=== PATIENT | female | born 1960 | race Caucasian/White ===

== ENCOUNTER → 2017-06-28 | Outpatient (CLI) | payer OTHER ==
[~2017-06-28] MED LIST: ALBU18HF INH; ASPI-515 PO; ATOR40TA78 PO; CLON0.5T20 PO; HYDR-3237 PO; IBUP200T49 PO; LURA80TA PO; METH500T97 PO; SERT100T5 PO; TRAM50TA2 PO
== END | disposition home or self-care (01) ==
LOC: CFH 14:33
PROVIDERS: ATTEND Nurse Practitioner
DX: M48.02 Spinal stenosis, cervical region (principal); M50.33 Other cervical disc degeneration, cervicothoracic region; M48.061 Spinal stenosis, lumbar region without neurogenic claudication; M51.36 Other intervertebral disc degeneration, lumbar region
CPT/HCPCS: 72141; 72148

== ENCOUNTER 2017-09-03 12:00 | Inpatient (IN) | payer OTHER ==
[~2017-09-03] VITALS: Ht 160 cm; Wt 97.6 kg
[~2017-09-03 12:00] MED LIST changes: +ASPI-496 PO; +BACITRACIN 50,000 UNIT ONE; +BUPIVACAINE/PF 0.5% ONE; +THROMBIN 5,000 UNIT VIAL TP ONE
[2017-09-03] MEDS ORDERED: LACTATED RINGERS 1,000 ML IV SCH (13:31)
[2017-09-03 13:35] VITALS: BP 123/84
[2017-09-03] MEDS ORDERED: MIDAZOLAM 1 MG/ML, 2ML ONE (14:59)
[2017-09-03] MEDS ORDERED: FENTANYL PF 250 MCG/5ML ONE ×2 (14:59→17:05)
[2017-09-03] MEDS ORDERED: ROCURONIUM 10MG/ML,5ML ONE (15:00)
[2017-09-03] MEDS ORDERED: PROPOFOL 10 MG/ML, 20ML ONE (15:00)
[2017-09-03] MEDS ORDERED: SUCCINYLCHOLINE 20 MG/ML, 10ML ONE (15:01)
[2017-09-03] MEDS ORDERED: CEFAZOLIN 1,000 MG ONE ×2 (15:02)
[2017-09-03] MEDS ORDERED: WATER-INJECTION,STERILE 10 ML IV ONE (15:02)
[2017-09-03] MEDS ORDERED: PROPOFOL 0 ML ONE (15:03)
[2017-09-03] MEDS ORDERED: ACETAMINOPHEN 325 MG TABLET PO PRN (16:30)
[2017-09-03] MEDS ORDERED: hydrALAzine 20 MG/ML, 1ML IV PRN (16:30)
[2017-09-03] MEDS ORDERED: SUGAMMADEX 200 MG/2 ML IVPush ONE (16:30)
[2017-09-03] MEDS ORDERED: PROMETHAZINE 25 MG/ML, 1ML IV PRN (16:30)
[2017-09-03] MEDS ORDERED: OXYcodone 5 MG/5 ML ORAL.SOL UDC PO PRN (16:30)
[2017-09-03] MEDS ORDERED: morphine SULFATE 10 MG/ML, 1ML IV PRN (16:30)
[2017-09-03] MEDS ORDERED: ONDANSETRON 2MG/ML, 2ML IVPush PRN (16:30)
[2017-09-03] MEDS ORDERED: FENTANYL PF 100 MCG/2ML IV PRN (16:30)
[2017-09-03] MEDS ORDERED: MEPERIDINE/PF 25MG/0.5ML IVPush PRN (16:30)
[2017-09-03] MEDS ORDERED: LABETALOL 5MG/ML, 20ML IV PRN (16:30)
[2017-09-03] MEDS ORDERED: HYDROmorphone 1 MG/ML, 1ML IV PRN (16:30)
[2017-09-03] MEDS ORDERED: PROMETHAZINE 12.5 MG SUPP PR PRN (16:30)
[2017-09-03] MEDS ORDERED: PROPOFOL 50 ML ONE ×3 (16:54→18:15)
[2017-09-03] MEDS ORDERED: BUPIVACAINE/PF-EPI 0.5% 1:200K IM ONE (17:09)
[2017-09-03] MEDS ORDERED: BACITRACIN 50,000 UNIT IRRIG ONE (17:09)
[2017-09-03] MEDS ORDERED: THROMBIN 5,000 UNIT VIAL TP ONE (17:10)
[2017-09-03] MEDS ORDERED: NEOSTIGMINE 1 MG/ML, 10ML ONE (17:31)
[2017-09-03] MEDS ORDERED: GLYCOPYRROLATE 0.4 MG/2 ML, 2ML ONE (17:31)
[2017-09-03] MEDS ORDERED: OXYcodone 5 MG/5 ML ORAL.SOL UDC ONE (19:23)
[2017-09-03] MEDS ORDERED: ATORVASTATIN 40 MG TABLET PO SCH (21:10)
[2017-09-03] MEDS ORDERED: LATUDA 120 MG HOMEMEDPO SCH (21:12)
[2017-09-03] MEDS ORDERED: DIPHENHYDRAMINE 50 MG/ML, 1ML IVPush PRN (21:30)
[2017-09-03] MEDS ORDERED: OXYcodone/APAP 5/325MG TABLET PO PRN (21:30)
[2017-09-03] MEDS ORDERED: MORPHINE SULFATE 4 MG/ML, 1ML IV PRN (21:30)
[2017-09-03] MEDS ORDERED: MAGNESIUM HYDROXIDE 8%, 30ML UDC PO PRN (21:30)
[2017-09-03] MEDS ORDERED: DIPHENHYDRAMINE 25 MG CAPSULE PO PRN (21:30)
[2017-09-03] MEDS ORDERED: ONDANSETRON 2MG/ML, 2ML IV PRN (21:30)
[2017-09-03] MEDS ORDERED: ONDANSETRON ODT 4 MG PO PRN (21:30)
[2017-09-03] MEDS ORDERED: HYDROcodone/APAP 10/325 MG TABLET PO PRN (21:30)
[2017-09-03] MEDS ORDERED: BISACODYL 10 MG SUPP PR PRN (21:30)
[2017-09-03] MEDS ORDERED: PROMETHAZINE 25 MG/ML, 1ML IM PRN (21:30)
[2017-09-03] MEDS: D5%-0.9% NACL+KCL 20MEQ 1,000 ML IV SCH (22:02)
[2017-09-04] MEDS: CEFAZOLIN PMX 1GM/50ML 50 ML IVPB SCH ×2 (02:03→10:20)
[2017-09-04 02:36] VITALS: BP 112/59
[2017-09-04] MEDS: D5%-0.9% NACL+KCL 20MEQ 1,000 ML IV SCH (07:13)
[2017-09-04 07:20] VITALS: BP 100/54
[2017-09-04] MEDS ORDERED: SENNA/DOCUSATE TABLET PO SCH (09:00)
[2017-09-04] MEDS ORDERED: SERTRALINE 100MG TABLET PO SCH (09:00)
[2017-09-04] MEDS ORDERED: OXYC1TAB7 PO (09:05)
[2017-09-04] MEDS ORDERED: TIZA2TAB PO (09:05)
[2017-09-04 11:27] VITALS: BP 106/57
== END 2017-09-04 13:35 | disposition home health service (06) | DRG 473 ==
LOC: ORIP 12:49 → 4NOR 20:59 → DCLOUNGE 09-04 13:18
PROVIDERS: ADMIT Neurological Surgery; ATTEND Neurological Surgery
PROC: 0RG20A0 Fusion of 2 or more Cervical Vertebral Joints with Interbody Fusion Device, Anterior Approach, Anterior Column, Open Approach (ICD-10-PCS; 2017-09-03)
PROC: 4A1134G Monitoring of Peripheral Nervous Electrical Activity, Intraoperative, Percutaneous Approach (ICD-10-PCS; 2017-09-03)
PROC: 0RB30ZZ Excision of Cervical Vertebral Disc, Open Approach (ICD-10-PCS; principal; 2017-09-03 15:30)
DX: M50.121 Cervical disc disorder at C4-C5 level with radiculopathy (principal); M25.78 Osteophyte, vertebrae; M40.202 Unspecified kyphosis, cervical region; M43.12 Spondylolisthesis, cervical region; M50.123 Cervical disc disorder at C6-C7 level with radiculopathy; M40.292 Other kyphosis, cervical region; Z88.0 Allergy status to penicillin
CPT/HCPCS: 36415; 72040; 86850; 86900; 95938; 95941; C1713; J0690; J2250; J2270; J2704; J2710; J3010; J3490; J0330; J3480; J7120

== ENCOUNTER → 2017-10-09 | Outpatient (CLI) | payer OTHER ==
[~2017-10-09] MED LIST changes: -BACITRACIN 50,000 UNIT ONE; -BUPIVACAINE/PF 0.5% ONE; +OXYC1TAB7 PO; -THROMBIN 5,000 UNIT VIAL TP ONE; +TIZA2TAB PO
== END | disposition home or self-care (01) ==
LOC: RAD 12:01
PROVIDERS: ATTEND Registered Nurse Registered Nurse First Assistant
DX: M50.30 Other cervical disc degeneration, unspecified cervical region (principal)
CPT/HCPCS: 72040

== ENCOUNTER → 2018-06-10 | Outpatient (CLI) | payer OTHER ==
[~2018-06-10] MED LIST changes: +SERT100T32 PO; -SERT100T5 PO
== END | disposition home or self-care (01) ==
LOC: CFH 09:21
PROVIDERS: ATTEND Nurse Practitioner
DX: Z12.31 Encounter for screening mammogram for malignant neoplasm of breast (principal)
CPT/HCPCS: 77067

== ENCOUNTER → 2018-06-24 | Outpatient (CLI) | payer OTHER | END | disposition home or self-care (01) | LOC: CFH 14:25 | PROVIDERS: ATTEND Nurse Practitioner | DX: N63.21 Unspecified lump in the left breast, upper outer quadrant (principal); R92.8 Other abnormal and inconclusive findings on diagnostic imaging of breast | CPT/HCPCS: 76641; 77065; G0279 ==

== ENCOUNTER → 2018-08-05 | Outpatient (CLI) | payer OTHER | END | disposition home or self-care (01) | LOC: CFH 13:51 | PROVIDERS: ATTEND Nurse Practitioner | DX: Z12.2 Encounter for screening for malignant neoplasm of respiratory organs (principal); R06.02 Shortness of breath; I25.10 Atherosclerotic heart disease of native coronary artery without angina pectoris; I70.0 Atherosclerosis of aorta; Z87.891 Personal history of nicotine dependence | CPT/HCPCS: G0297 ==

== ENCOUNTER 2018-12-19 07:51 | Outpatient (CLI) | payer MEDICARE | END 2018-12-19 23:59 | disposition home or self-care (01) | LOC: RAD 07:51 | PROVIDERS: ATTEND Surgery | DX: Z01.818 Encounter for other preprocedural examination (principal); K44.9 Diaphragmatic hernia without obstruction or gangrene; E78.00 Pure hypercholesterolemia, unspecified; E66.01 Morbid (severe) obesity due to excess calories | CPT/HCPCS: 74247 ==

== ENCOUNTER 2019-05-14 13:30 | Outpatient (CLI) | payer MEDICARE ==
[~2019-05-14 13:30] MED LIST changes: -TIZA2TAB PO; +TIZA2TAB2 PO
[2019-05-14] MEDS ORDERED: LIDOCAINE 1%-EPI 1:100K, 30ML ONE (15:52)
[2019-05-14] MEDS ORDERED: LIDOCAINE 1%, 20ML ONE (15:52)
[2019-05-14] MEDS ORDERED: SODIUM BICARBONATE 4.2%, 5ML ONE (15:52)
== END 2019-05-14 23:59 | disposition home or self-care (01) ==
LOC: CFH 13:30
PROVIDERS: ATTEND Nurse Practitioner
DX: N63.21 Unspecified lump in the left breast, upper outer quadrant (principal); D24.2 Benign neoplasm of left breast
CPT/HCPCS: 19083; 77065; 88305; J3490

== ENCOUNTER → 2020-01-20 | Outpatient (CLI) | payer MEDICARE ==
[~2020-01-20] MED LIST changes: -TIZA2TAB2 PO; +TIZA2TAB4 PO
== END | disposition home or self-care (01) ==
LOC: CFH 13:48
PROVIDERS: ATTEND Registered Nurse Registered Nurse First Assistant
DX: M51.17 Intervertebral disc disorders with radiculopathy, lumbosacral region (principal); M48.061 Spinal stenosis, lumbar region without neurogenic claudication
CPT/HCPCS: 72148